=== PATIENT | female | born 1995 | race Two or more races ===

== ENCOUNTER → 2018-12-30 | Outpatient (CLI) | payer OTHER | END | disposition home or self-care (01) | LOC: PRENATAL 11:00 | DX: O35.3XX0 Maternal care for (suspected) damage to fetus from viral disease in mother, not applicable or unspecified (principal) ==

== ENCOUNTER 2019-01-16 13:08 | Outpatient (CLI) | payer OTHER | END 2019-01-16 18:52 | disposition home or self-care (01) | LOC: OBS/DEL 13:08 | DX: O21.0 Mild hyperemesis gravidarum (principal); O26.612 Liver and biliary tract disorders in pregnancy, second trimester; K83.1 Obstruction of bile duct ==

== ENCOUNTER 2019-05-08 13:45 | Inpatient (IN) | payer OTHER ==
[~2019-05-08] VITALS: Ht 160 cm; Wt 61.2 kg
[2019-05-28] MEDS ORDERED: IRON325 MG PO (10:02)
[2019-05-28] MEDS ORDERED: FOLIC ACID20 MG PO (10:02)
[2019-05-28] MEDS ORDERED: PRENATAL CAPLE1 EAC1 PO (10:02)
[2019-05-30] MEDS ORDERED: FUSION PLUS CA1 EACH PO (12:19)
== END 2019-05-30 13:04 | disposition home or self-care (01) | DRG 768 ==
LOC: OB/GYN 05-28 09:29 → LDR 05-28 09:29 → OB/GYN 05-28 15:47
PROVIDERS: ADMIT Obstetrics & Gynecology
PROC: 10E0XZZ Delivery of Products of Conception, External Approach (ICD-10-PCS; principal; 2019-05-28)
PROC: 0DQR0ZZ Repair Anal Sphincter, Open Approach (ICD-10-PCS; 2019-05-28)
PROC: 0W8NXZZ Division of Female Perineum, External Approach (ICD-10-PCS; 2019-05-28)
PROC: 10907ZC Drainage of Amniotic Fluid, Therapeutic from Products of Conception, Via Natural or Artificial Opening (ICD-10-PCS; 2019-05-28)
PROC: 3E033VJ Introduction of Other Hormone into Peripheral Vein, Percutaneous Approach (ICD-10-PCS; 2019-05-28)
PROC: 4A1HXCZ Monitoring of Products of Conception, Cardiac Rate, External Approach (ICD-10-PCS; 2019-05-28)
DX: O70.21 Third degree perineal laceration during delivery, IIIa (principal); Z37.0 Single live birth; Z3A.39 39 weeks gestation of pregnancy; O99.824 Streptococcus B carrier state complicating childbirth